=== PATIENT | female | born 1990 | race Caucasian/White ===

== ENCOUNTER 2016-10-12 07:39 | Inpatient (IN) | payer SELFPAY ==
[2014-03-21 14:58] VITALS: BP 114/67
[~2016-10-12 07:39] MED LIST: FENT1PAT13 TD; FOLI20CA PO; METR500T PO; OXYC-323 PO; PREN1TAB27 PO
== END 2016-10-12 16:44 | disposition home or self-care (01) | DRG 775 ==
LOC: 3 SO LND 07:39
PROVIDERS: ADMIT Specialist; ATTEND Specialist
PROC: 10E0XZZ Delivery of Products of Conception, External Approach (ICD-10-PCS; principal; 2016-10-12)
DX: O60.12X1 Preterm labor second trimester with preterm delivery second trimester, fetus 1 (principal); Z37.1 Single stillbirth; Z3A.22 22 weeks gestation of pregnancy